=== PATIENT | male | born 1945 | race Caucasian/White ===

== ENCOUNTER 2023-05-10 05:41 | Day surgery (SDC) | payer MEDICARE ==
[2023-05-08 14:39] VITALS: BMI 34.8
[2023-05-10] MEDS ORDERED: Thrombin 5000 UNITS/5 ML VIAL ONE (06:23)
[2023-05-10] MEDS ORDERED: EPINEPHrine 1 MG/ML AMP ONE (06:23)
[2023-05-10] MEDS ORDERED: Bupivacaine PF 0.5% 30 ML VIAL ONE (06:23)
[2023-05-10 06:36] LABS: #Basophils 0.1 thou/uL (0.0-0.2); #Eosinphils 0.2 thou/uL (0.0-0.7); #Monocytes 0.8 thou/uL (0.11-0.59); #Neutrophils 3.3 thou/uL (1.40-6.50); %Basophils 0.7 % (0.0-1.0); %Eosinophils 3.1 % (0.0-10.0); %Lymphocytes 36.5 % (21.0-51.0); %Monocytes 11.6 % (0.0-10.0); %Neutrophils 47.5 % (42.0-75.0); Hematocrit 45.5 % (42.0-52.0); Hemoglobin 14.5 g/dL (14.0-18.0); Mean Corpuscular HGB CONC 31.9 g/dL (32.0-36.0); Mean Corpuscular Hemoglobin 26.8 pg (27.0-31.0); Mean Corpuscular Volume 83.9 fl (78.0-98.0); Mean Platelet Volume 10.5 fL (7.4-10.4); Platelet Count 289 10x3/uL (130-400); RBC Distribution Width 15.7 % (11.5-14.5); Red Blood Cell (RBC) Count 5.42 mill/uL (4.70-6.10)
[2023-05-10] MEDS ORDERED: Clindamycin/D5W 900 mg/50 ml Premix Bag ONE (06:38)
[2023-05-10] MEDS ORDERED: LevoFLOXacin 500 mg/D5W 100 ML BAG ONE (06:38)
[2023-05-10 06:49] LABS: Anion Gap 17 mmol/L (10-20); BUN (Urea Nitrogen) 11 mg/dL (8.4-25.7); Calc. Creatinine Clearance 106 mL/min (70-130); Calcium 10.3 mg/dL (7.8-10.44); Carbon Dioxide 28 mmol/L (23-31); Chloride 95 mmol/L (98-107); Estimated GFR 85; Glucose 123 mg/dL (83-110); Potassium 3.5 mmol/L (3.5-5.1); Sodium 136 mmol/L (136-145)
[2023-05-10] MEDS ORDERED: Ondansetron PF 4 MG/2 ML Vial ONE (07:00)
[2023-05-10] MEDS ORDERED: NEOSTIGMINE 3 MG/3 ML SYR 3 MG/3 ML SYRINGE ONE (07:00)
[2023-05-10] MEDS ORDERED: Glycopyrrolate 0.2 MG/ML 5 ML SYRINGE ONE (07:00)
[2023-05-10] MEDS ORDERED: Lidocaine 1% PF 5 ML VIAL ONE (07:00)
[2023-05-10] MEDS ORDERED: PROPOFOL 200 MG/20 ML VIAL ONE (07:00)
[2023-05-10] MEDS ORDERED: Dexamethasone 20 MG/5 ML VIAL ONE (07:00)
[2023-05-10] MEDS ORDERED: Rocuronium Bromide 10 MG/ML (10ML VIAL) ONE (07:00)
[2023-05-10] MEDS ORDERED: fentaNYL 50 mcg/mL 1 mL Vial ONE ×4 (07:05→10:27)
[2023-05-10] MEDS ORDERED: SUGAMMADEX SODIUM 200 MG/2 ML VIAL ONE ×2 (07:41→08:00)
[2023-05-10] MEDS ORDERED: Albuterol HFA (OR) 200 PUFF INH ONE (07:41)
[2023-05-10] MEDS ORDERED: Midazolam HCl 2 mg/2 ml Vial ONE (07:41)
[2023-05-10] MEDS ORDERED: Tamsulosin HCl 0.4 MG CAP ONE (08:39)
[2023-05-10] MEDS ORDERED: Acetaminophen/Codeine 30-300mg Tablet ONE (10:09)
== END 2023-05-10 11:57 | disposition home or self-care (01) ==
LOC: SDC 05:41
PROVIDERS: ATTEND Neurological Surgery
PROC: 01NB0ZZ Release Lumbar Nerve, Open Approach (ICD-10-PCS; principal; 2023-05-10)
DX: M54.16 Radiculopathy, lumbar region (principal); M48.07 Spinal stenosis, lumbosacral region; E78.5 Hyperlipidemia, unspecified; H26.9 Unspecified cataract; I11.9 Hypertensive heart disease without heart failure; Z96.653 Presence of artificial knee joint, bilateral; Z90.49 Acquired absence of other specified parts of digestive tract; Z87.891 Personal history of nicotine dependence; Z79.890 Hormone replacement therapy; Z79.82 Long term (current) use of aspirin; Z79.899 Other long term (current) drug therapy
CPT/HCPCS: 63047; 63048; 80048; 85025; J3010; J0171; J1100; J1956; J2250; J2405; J2704; J3490; S0020

== ENCOUNTER 2023-09-18 08:57 | Outpatient (CLI) | payer MEDICARE | END 2023-09-18 08:58 | disposition home or self-care (01) | LOC: RAD 08:57 | PROVIDERS: ATTEND Internal Medicine Critical Care Medicine | DX: R06.00 Dyspnea, unspecified (principal) | CPT/HCPCS: 71046 ==